=== PATIENT | female | born 1970 | race Caucasian/White ===

== ENCOUNTER 2017-08-19 19:08 | Emergency (ER) | payer MEDICAID ==
[2017-08-19] MEDS: Albuterol/Ipratropium 3.0-0.5 MG/3 ML Neb Soln NEB ONE (19:15)
--- NOTE | 2017-08-19 19:25 | EDM.PDOC ---
ED HPI GENERAL MEDICAL PROBLEM - General Chief Complaint: Respiratory Problem Stated Complaint: Shortness of breath Time Seen by Provider: 08/19/17 19:14 Source of Information: Reports: Patient, EMS History Limitations: Reports: No Limitations - History of Present Illness INITIAL COMMENTS - FREE TEXT/NARRATIVE: 46 YO WF presents to ER by EMS with complaints of nonproductive cough and shortness of breath after exposure to bug spray. Pt reports she set off bug bombs in house earlier in the day and when she went back inside to check on the house she began to feel short of breath with persistent coughing causing her to call EMS for further evaluation and treatment. Pt with history of tobacco use and bronchitis but denies any chronic pulmonary problems. EMS reports pt met them at the curb in [facility]. Pt currently without any complaints and states she is feeling better after oxygen. Pt denies any eye or skin irritation. Raid bug bomb is nontoxic and without organophosphate per label. Onset: Sudden Duration: Hour(s): (1) Location: Reports: Generalized Improves with: Reports: None Worsens with: Reports: None Associated Symptoms: Reports: Cough, Shortness of Breath. Denies: Confusion, Chest Pain, cough w sputum, Diaphoresis, Fever/Chills, Headaches, Malaise, Nausea/Vomiting, Rash, Seizure, Syncope ED ROS GENERAL - Review of Systems Review Of Systems: See Below Constitutional: Reports: No Symptoms HEENT: Reports: No Symptoms Respiratory: Reports: Shortness of Breath Cardiovascular: Reports: No Symptoms Endocrine: Reports: No Symptoms GI/Abdominal: Reports: No Symptoms : Reports: No Symptoms Musculoskeletal: Reports: No Symptoms Skin: Reports: No Symptoms Neurological: Reports: No Symptoms Psychiatric: Reports: No Symptoms Hematologic/Lymphatic: Reports: No Symptoms Immunologic: Reports: No Symptoms ED EXAM, GENERAL - Physical Exam Exam: See Below Exam Limited By: No Limitations General Appearance: Alert, WD/WN, No Apparent Distress Eye Exam: Bilateral Eye: EOMI, PERRL Nose: Normal Inspection, Normal Mucosa, No Blood Throat/Mouth: Normal Inspection, Normal Lips, Normal Teeth, Normal Gums, Normal Oropharynx, Normal Voice, No Airway Compromise Head: Atraumatic, Normocephalic Neck: Normal Inspection, Supple, Non-Tender, Full Range of Motion Respiratory/Chest: No Respiratory Distress, No Accessory Muscle Use, Chest Non- Tender, Decreased Breath Sounds, Wheezing. No: Respiratory Distress, Accessory Muscle Use, Retractions, Splinting, Prolonged Expiration Cardiovascular: Normal Peripheral Pulses, Regular Rate, Rhythm, No Edema, No Gallop, No JVD, No Murmur, No Rub GI/Abdominal: Normal Bowel Sounds, Soft, Non-Tender, No Organomegaly, No Distention, No Abnormal Bruit, No Mass Back Exam: Normal Inspection, Full Range of Motion, NT Extremities: Normal Inspection, Normal Range of Motion, Non-Tender, Normal Capillary Refill, No Pedal Edema Neurological: Alert, Oriented, CN II-XII Intact, Normal Cognition, Normal Gait, Normal Reflexes, No Motor/Sensory Deficits Psychiatric: Normal Affect, Normal Mood Skin Exam: Warm, Dry, Intact, Normal Color, No Rash Lymphatic: No Adenopathy Course - Vital Signs Last Recorded V/S: Last Vital Signs Temp 36.5 C 08/19/17 19:27 Pulse 91 08/19/17 19:27 Resp 16 08/19/17 19:27 BP 119/68 08/19/17 19:27 Pulse Ox 95 08/19/17 19:27 - Orders/Labs/Meds Orders: Active Orders 24 hr Category Date Time Status RT Post Treatment Assessment [RC] Click to Edit Care 08/19/17 19:36 Ordered RT Pre-Treatment Assessment [RC] Click to Edit Care 08/19/17 19:36 Ordered Chest 2V [CR] Stat Exams 08/19/17 19:25 Ordered Albuterol [Ventolin HFA] Med 08/19/17 19:35 Ordered 8 gm INH Q4H PRN Medication Orders Albuterol (Ventolin Hfa) 8 gm INH Q4H PRN PRN Reason: Shortness of Breath Meds: Medications Generic Name Dose Route Start Last Admin Trade Name Freq PRN Reason Stop Dose Admin Albuterol 8 gm 08/19/17 19:35 Ventolin Hfa INH Q4H PRN Shortness of Breath Discontinued Medications Generic Name Dose Route Start Last Admin Trade Name Freq PRN Reason Stop Dose Admin Albuterol/Ipratropium Confirm 08/19/17 19:18 Duoneb 3.0-0.5 Mg/3 Ml Administered 08/19/17 19:19 Dose 3 ml .ROUTE .STK-MED ONE - Radiology Interpretation Free Text/Narrative:: CXR- NAD Departure - Departure Time of Disposition: 19:38 Disposition: Home, Self-Care 01 Condition: Good Clinical Impression: Bronchospasm Exposure to respiratory irritant Qualifiers: Encounter type: initial encounter Qualified Code(s): T75.89XA - Other specified effects of external causes, initial encounter - Discharge Information Instructions: Bronchospasm, Adult, [id number] Referrals: Jaydon Tate MD [Physician] - Forms: ED Department Discharge Additional Instructions: 1. discharge home 2. albuterol MDI Q4 and PRN 3. avoid home x 24 hours due to irritant 4. follow up in clinic for further evaluation and treatment 5. return to ER for worsening symptoms - My Orders Last 24 Hours: My Active Orders 08/19/17 19:25 Chest 2V [CR] Stat 08/19/17 19:35 Albuterol [Ventolin HFA] 8 gm INH Q4H PRN 08/19/17 19:36 RT Post Treatment Assessment [RC] Click to Edit RT Pre-Treatment Assessment [RC] Click to Edit - Assessment/Plan Last 24 Hours: My Active Orders 08/19/17 19:25 Chest 2V [CR] Stat 08/19/17 19:35 Albuterol [Ventolin HFA] 8 gm INH Q4H PRN 08/19/17 19:36 RT Post Treatment Assessment [RC] Click to Edit RT Pre-Treatment Assessment [RC] Click to Edit Assessment:: 1. Bronchospasm secondary to respiratory irritant Plan: 1. discharge home 2. albuterol MDI Q4 and PRN 3. avoid home x 24 hours due to irritant 4. follow up in clinic for further evaluation and treatment 5. return to ER for worsening symptoms
[2017-08-19] MEDS: Albuterol HFA 18 Gm Inhaler INH PRN (19:55)
[2017-08-20] MEDS: Albuterol/Ipratropium 3.0-0.5 MG/3 ML Neb Soln ONE (03:11)
== END 2017-08-19 19:55 | disposition home or self-care (01) ==
LOC: KA.ED 19:08
DX: Z77.098 Contact with and (suspected) exposure to other hazardous, chiefly nonmedicinal, chemicals (principal); J98.01 Acute bronchospasm; Z87.891 Personal history of nicotine dependence
CPT/HCPCS: 71046; 94640; 99284; A9270-GY

== ENCOUNTER 2018-06-14 21:12 | Emergency (ER) | payer MEDICAID ==
[2018-06-14] MEDS: Sodium Chloride 0.9% 1,000 ML IV ONE (21:34)
[2018-06-14] MEDS ORDERED: Sodium Chloride 0.9% 10 ML Syringe FLUSH PRN (21:45)
[2018-06-14] MEDS: methylPREDNISolone Sodium Succinate 125 MG/2 ML SDV IVPUSH ONE (21:53)
[2018-06-14] MEDS: diphenhydrAMINE 50 MG/ML SDV IVPUSH ONE (21:54)
[2018-06-14] MEDS: Ondansetron 4 MG/2 ML SDV IVPUSH ONE (21:54)
--- NOTE | 2018-06-14 21:55 | EDM.PDOC ---
ED HPI GENERAL MEDICAL PROBLEM - General Chief Complaint: Headache Stated Complaint: HEADACHE Time Seen by Provider: 06/14/18 21:45 Source of Information: Reports: Patient History Limitations: Reports: No Limitations - History of Present Illness INITIAL COMMENTS - FREE TEXT/NARRATIVE: Patient is a 47-year-old female who presents to the emergency department this evening with a complaint of headache. Patient states she does have a history of chronic migraine headaches, this headache began this morning and progressively worsened during the day. Patient said that she had one episode of nausea and vomiting at 1700 today. Patient has an extensive psych history, and is on multiple psychological medications. Patient denies fever, trauma, chest pain, shortness of breath, head injury, abdominal pain, blurry vision, out of country travel, or social drug use. Onset: Gradual Duration: Hour(s): Location: Reports: Head Quality: Reports: Pressure Severity: Moderate Improves with: Reports: None Worsens with: Reports: None Associated Symptoms: Reports: Headaches, Nausea/Vomiting. Denies: Chest Pain, Fever/Chills, Shortness of Breath Headache Pain Score (Numeric/FACES): 10 - Related Data Allergies Allergy/AdvReac Type Severity Reaction Status Date / Time aspirin Allergy Itching Verified 06/14/18 21:22 bee venom protein (honey bee) Allergy Anaphylactic Verified 06/14/18 21:22 Shock Fish Containing Products Allergy Anaphylactic Verified 06/14/18 21:22 Shock hydrochlorothiazide Allergy Hives Verified 06/14/18 21:22 latex Allergy Rash Verified 06/14/18 21:22 shellfish derived Allergy Anaphylactic Verified 06/14/18 21:22 Shock Home Meds: Home Meds Famotidine 20 mg PO DAILY 08/20/17 [History] Gabapentin [Neurontin] 300 mg PO BID 08/20/17 [History] PARoxetine HCl [Paroxetine HCl] 30 mg PO DAILY 08/20/17 [History] Pentoxifylline [TRENtal] 400 mg PO BID 08/20/17 [History] busPIRone [Buspar] 15 mg PO BID 08/20/17 [History] diazePAM [Valium] 5 mg PO BID 08/20/17 [History] Cyclobenzaprine [Flexeril] 10 mg PO BID 03/16/18 [History] Loratadine/Pseudoephedrine [Claritin-D 24 Hour Tablet] 1 each PO DAILY 10/24/18 [History] Rizatriptan Benzoate [Rizatriptan] 10 mg PO ASDIRECTED PRN 03/16/18 [History] Meclizine [Antivert] 25 mg PO BID 05/10/18 [History] Hydrocodone/Acetaminophen [Hydrocodon-Acetaminophn 10-325] 1 tab PO BID [History] Past Medical History HEENT History: Reports: Otitis Media, Sinusitis Cardiovascular History: Reports: Heart Murmur Respiratory History: Reports: Bronchitis, Recurrent, Pneumonia, Recurrent Gastrointestinal History: Reports: GERD [employer] History: Reports: Musculoskeletal History: Reports: Fibromyalgia, Other (See Below) Other Musculoskeletal History: tendonitis, bursitis Psychiatric History: Reports: Addiction, Anxiety, Bipolar, Dementia, Panic Attack, PTSD - Past Surgical History HEENT Surgical History: Reports: Tonsillectomy Female Surgical History: Reports: Hysterectomy Neurological Surgical History: Reports: Laminectomy Social & Family History - Caffeine Use Caffeine Use: Reports: Coffee, Soda ED ROS GENERAL - Review of Systems Review Of Systems: ROS reveals no pertinent complaints other than HPI. Constitutional: Reports: No Symptoms HEENT: Reports: No Symptoms Respiratory: Reports: No Symptoms Cardiovascular: Reports: No Symptoms Endocrine: Reports: No Symptoms GI/Abdominal: Reports: No Symptoms : Reports: No Symptoms Musculoskeletal: Reports: No Symptoms Skin: Reports: No Symptoms Neurological: Reports: Headache. Denies: Syncope, Trouble Speaking, Change in Speech, Gait Disturbance Psychiatric: Reports: Anxiety. Denies: Homicidal Ideation, Suicidal Ideation Hematologic/Lymphatic: Reports: No Symptoms Immunologic: Reports: No Symptoms - Physical Exam Exam: See Below Exam Limited By: No Limitations General Appearance: Alert, WD/WN, Mild Distress Eye Exam: Bilateral Eye: Normal Inspection Ears: Normal External Exam, Normal Canal, Normal TMs Nose: Normal Inspection, Normal Mucosa, No Blood Throat/Mouth: Normal Inspection, Normal Oropharynx, No Airway Compromise Head Exam: Atraumatic, Normocephalic Neck: Normal Inspection, Supple, Non-Tender, Full Range of Motion Respiratory/Chest: No Respiratory Distress, Lungs Clear, Normal Breath Sounds, No Accessory Muscle Use, Chest Non-Tender Cardiovascular: Normal Peripheral Pulses, Regular Rate, Rhythm, No Murmur GI/Abdominal: Normal Bowel Sounds, Soft, Non-Tender, No Organomegaly, No Abnormal Bruit, No Mass Neuro Exam (Abbreviated): Alert, Oriented, CN II-XII Intact, Normal Cognition, No Motor/Sensory Deficits Back Exam: Normal Inspection. No: CVA Tenderness (L), CVA Tenderness (R) Extremities: Normal Inspection Psychiatric: Anxious Skin Exam: Warm, Dry, Intact, Normal Color, No Rash Course - Vital Signs Last Recorded V/S: Last Vital Signs Temp 97.4 F 06/14/18 21:16 Pulse 91 06/14/18 21:16 Resp 18 06/14/18 21:16 BP 131/86 06/14/18 21:16 Pulse Ox 96 06/14/18 21:16 - Orders/Labs/Meds Orders: Active Orders 24 hr Category Date Time Status Peripheral IV Care [RC] . DIRECTED Care 06/14/18 21:46 Ordered Sodium Chloride 0.9% @ 999 MLS/HR (1000ml) Med 06/14/18 21:45 Ordered Sodium Chloride 0.9% [Normal Saline] 1,000 ml IV .BOLUS Sodium Chloride 0.9% [Saline Flush] Med 06/14/18 21:45 Ordered 10 ml FLUSH Q8HR PRN Peripheral IV Insertion Adult [OM.PC] Routine Oth 06/14/18 21:45 Ordered Medication Orders Sodium Chloride (Normal Saline) 1,000 mls @ 999 mls/hr IV .BOLUS ONE Stop: 06/14/18 22:45 Sodium Chloride (Saline Flush) 10 ml FLUSH Q8HR PRN PRN Reason: keep vein open Meds: Medications Generic Name Dose Route Start Last Admin Trade Name Freq PRN Reason Stop Dose Admin Sodium Chloride 1,000 mls @ 999 mls/hr 06/14/18 21:45 Normal Saline IV 06/14/18 22:45 .BOLUS ONE Sodium Chloride 10 ml 06/14/18 21:45 Saline Flush FLUSH Q8HR PRN keep vein open Discontinued Medications Generic Name Dose Route Start Last Admin Trade Name Freq PRN Reason Stop Dose Admin Diphenhydramine HCl 25 mg 06/14/18 21:45 Benadryl IVPUSH 06/14/18 21:46 ONETIME ONE Methylprednisolone Sodium Succinate 125 mg 06/14/18 21:45 Solu-Medrol IVPUSH 06/14/18 21:46 ONETIME ONE Ondansetron HCl 4 mg 06/14/18 21:45 Zofran IVPUSH 06/14/18 21:46 ONETIME ONE - Re-Assessments/Exams Free Text/Narrative Re-Assessment/Exam: 06/14/18 22:17 Patient afebrile, nontoxic appearing, vital signs stable, headache, mostly relieved. Patient will follow-up with their PCP. Departure - Departure Time of Disposition: 22:18 Disposition: Home, Self-Care 01 Condition: Good Clinical Impression: Migraine - Discharge Information Instructions: Recurrent Migraine Headache, [id number] Additional Instructions: Follow-up with PCP in next 2-3 days. Return to emergency department sooner symptoms continue or worsen. - My Orders Last 24 Hours: My Active Orders 06/14/18 21:45 Sodium Chloride 0.9% @ 999 MLS/HR (1000ml) Sodium Chloride 0.9% [Normal Saline] 1,000 ml IV .BOLUS Sodium Chloride 0.9% [Saline Flush] 10 ml FLUSH Q8HR PRN Peripheral IV Insertion Adult [OM.PC] Routine 06/14/18 21:46 Peripheral IV Care [RC] . DIRECTED - Assessment/Plan Last 24 Hours: My Active Orders 06/14/18 21:45 Sodium Chloride 0.9% @ 999 MLS/HR (1000ml) Sodium Chloride 0.9% [Normal Saline] 1,000 ml IV .BOLUS Sodium Chloride 0.9% [Saline Flush] 10 ml FLUSH Q8HR PRN Peripheral IV Insertion Adult [OM.PC] Routine 06/14/18 21:46 Peripheral IV Care [RC] . DIRECTED Assessment:: Migraine headache Plan: Follow-up with PCP
== END 2018-06-14 22:43 | disposition home or self-care (01) ==
LOC: KA.ED 21:12
DX: G43.909 Migraine, unspecified, not intractable, without status migrainosus (principal); Z91.030 Bee allergy status; Z79.899 Other long term (current) drug therapy; Z88.8 Allergy status to other drugs, medicaments and biological substances; Z91.040 Latex allergy status
CPT/HCPCS: 96361; 96374; 96375; 99283; J1200; J2405; J2930; J7030